=== PATIENT | female | born 1985 | race Two or more races ===

== ENCOUNTER 2021-04-05 16:01 | Emergency (ER) | payer MEDICAID ==
[~2021-04-05] VITALS: Ht 177.8 cm; Wt 150.0 kg
--- NOTE | 2021-04-05 17:13 | PHYS DOC ---
Past Medical History Past Surgical History: No Surgical History (MALENA GONSALES DO) General Adult EDM: Chief Complaint: ABDOMINAL PAIN HPI: HPI: Patient is a 35 year old female who present to ER for evaluation of umbilical abdominal pain off and on for 5 months. Patient says she has an umbilical hernia there, for the last few day it has been more painful. Patient denies any nausea vomiting. Patient has history of tubal ligation so she says she is not . Patient denies any vaginal bleeding or discharge, no frequent urination. Patient denies any chest pain or any trouble breathing, no COVID-19 exposure. (MALENA GONSALES DO) Review of Systems: Review of Systems: Constitutional: Denies fever or chills. [] Eyes: Denies change in visual acuity. [] HENT: Denies nasal congestion or sore throat. [] Respiratory: Denies cough or shortness of breath. [] Cardiovascular: Denies chest pain or edema. [] GI: Positive for abdominal pain, no nausea vomiting, no diarrhea. : Denies dysuria. [] Musculoskeletal: Denies back pain or joint pain. [] Integument: Denies rash. [] Neurologic: Denies headache, focal weakness or sensory changes. [] Endocrine: Denies polyuria or polydipsia. [] Lymphatic: Denies swollen glands. [] Psychiatric: Denies depression or anxiety. [] (MALENA GONSALES DO) Heart Score: C/O Chest Pain: N/A Risk Factors: Risk Factors: DM, Current or recent (<one month) smoker, HTN, HLP, family history of CAD, obesity. Risk Scores: Score 0 - 3: 2.5% MACE over next 6 weeks - Discharge Home Score 4 - 6: 20.3% MACE over next 6 weeks - Admit for Clinical Observation Score 7 - 10: 72.7% MACE over next 6 weeks - Early Invasive Strategies (MALENA GONSALES DO) Physical Exam: PE: Constitutional: Well developed, well nourished, no acute distress, non-toxic appearance. Obese HENT: Normocephalic, atraumatic, bilateral external ears normal, oropharynx moist, no oral exudates, nose normal. [] Eyes: PERRLA, EOMI, conjunctiva normal, no discharge. [] Neck: Normal range of motion, no tenderness, supple, no stridor. [] Cardiovascular:Heart rate regular rhythm, no murmur [] Lungs & Thorax: Bilateral breath sounds clear to auscultation [] Abdomen: Bowel sounds normal, soft, there is tenderness to palpation in the periumbilical area, there is a nonreducible umbilical hernia, no masses, no pulsatile masses. [] Skin: Warm, dry, no erythema, no rash. [] Back: No tenderness, no CVA tenderness. [] Extremities: No tenderness, no cyanosis, no clubbing, ROM intact, no edema. [] Neurologic: Alert and oriented X 3, normal motor function, normal sensory function, no focal deficits noted. [] Psychologic: Affect normal, judgement normal, mood normal. [] (MALENA GONSALES DO) Current Patient Data: Vital Signs: Vital Signs Date Time Temp Pulse Resp B/P (MAP) Pulse Ox O2 Delivery O2 Flow Rate FiO2 04/05/21 16:57 98.1 103 16 139/75 96 98.1 (MALENA GONSALES DO) EKG: EKG: [] (MALENA GONSALES DO) Radiology/Procedures: Radiology/Procedures: [] (MALENA GONSALES DO) Radiology/Procedures: IMAGING REPORT Signed PATIENT: RENU BULLARD ACCOUNT: [id number] : 1985 LOCATION: ER AGE: 35 SEX: F EXAM STATUS: REG ER ORD. PHYSICIAN: MALENA GONSALES DO REASON: periumbilical abdominal pain PROCEDURE: CT ABD PELV W/ IV CONTRST ONLY Exam: CT of abdomen and pelvis with contrast INDICATION: Periumbilical abdominal pain TECHNIQUE: Sequential axial images through the abdomen and pelvis obtained following the administration of 75 mL of Omni 300 IV contrast. Sagittal and coronal reformatted images were reconstructed from the axial data and reviewed. Exposure: One or more of the following in the visualized dose reduction techniques were utilized for this examination: 1. Automated exposure control 2. Adjustment of the MA and/or KV according to patient size 3. Use of iterative of reconstructive technique Comparisons: None FINDINGS: Heart size is normal. No pericardial effusion. Visualized lung bases are clear. No pleural effusion. Liver, spleen, pancreas, and adrenals are unremarkable. Gallbladder surgically absent. No perinephric inflammation or hydronephrosis. No renal or ureteral calculi are identified. Bladder is partially distended and not well evaluated. Uterus is not enlarged. No abnormal adnexal mass. Large and small bowel are unremarkable. Appendix is normal. No free intra- abdominal air or fluid. No obstruction. Abdominal aorta has normal course and caliber. Abdominal vasculature is patent. No enlarged intra-abdominal lymph nodes are identified. No suspicious osseous lesions or acute fractures. There is a fat-containing periumbilical hernia which measures 11 cm in diameter and approximately 2.8 cm opening IMPRESSION: Fat-containing periumbilical hernia. No herniated bowel. No evidence for obstruction. Electronically signed by: Chelle Garber MD (04/05/2021 8:37 PM) [facility] DICTATED and SIGNED BY: CHELLE GARBER MD DATE: 04/05/21 [id number] 0 (VALORIE REVELES DO) Course & Med Decision Making: Course & Med Decision Making Pertinent Labs and Imaging studies reviewed. (See chart for details) Patient is a 25-year-old female who present to ER for evaluation of periumbilical pain. Patient has a nonreducible umbilical hernia, tender to palpation, will obtain a CT scan abdomen pelvis to evaluate for strangulation or incarceration nature of the hernia. Patient's care has been endorsed to the [facility] physician at shift change Dr. Valorie Reveles. (GONSALESMALENA DO) Course & Med Decision Making Patient was evaluated by myself. Large pannus with periumbilical pain-able to press firmly on umbilical hernia (soft sac, normal appearing skin) and reduce without any severe distress. Pt educated on reduction. Sxs have been intermittent x 5 months. Pt calm at rest/sitting upright. Will discharge home with strict ED return precautions were given for severe or worsening pain, nausea, vomiting, abnormal bowel movements or fever. Encouraged urgent outpatient follow-up with PMD and surgery for definitive management. Life- threatening processes were considered but are low suspicion at this time, given history, physical exam and ED workup. Pt was educated on all prescription medications and adverse effects. All patient's questions were answered and pt was stable at time of discharge. Life/limb-threatening differential includes but is not limited to, aortic dissection, aortic aneurysm, acute coronary syndrome, surgical abdomen (appendicitis, cholecystitis, ischemic bowel, strangulated hernia, etc), bowel obstruction or volvulus, bladder outlet obstruction, gastrointestinal bleeding, inflammatory bowel disease, peptic ulcer disease, ACS/CAD, sepsis, diverticular disease, ureterolithiasis, nephrolithiasis, ovarian or testicular torsion, ectopic , vaginal hemorrhage, or genitourinary infection. I have spoken with the patient and/or caregivers. I explained the patient's condition, diagnoses and treatment plan based on the information available to me at this time. I have answered the patient and/or caregiver's questions and addressed any concerns. The patient and/or caregivers have a good understanding of patient's diagnosis, condition and treatment plan as can be expected at this point. Vital signs have been stable. Patient's condition is stable and appropriate for discharge from the emergency department. Patient will pursue further outpatient evaluation with primary care physician or other designated or consulting physician as outlined in the discharge instructions. The patient and/or caregivers are agreeable to this plan of care and follow-up instructions have been explained in detail. The patient and/or caregivers have received these instructions in written form and have expressed an understanding of the discharge instructions. The patient and/or caregivers are aware that any significant change of condition or worsening of symptoms should prompt immediate return to this or the closest emergency department or call to 911. (VALORIE REVELES DO) Myke Disclaimer: Myke Disclaimer: This electronic medical record was generated, in whole or in part, using a voice recognition dictation system. (MALENA GONSALES DO) Departure Departure Impression: Primary Impression: Umbilical hernia Additional Impression: Chronic abdominal pain Disposition: HOME / SELF CARE / HOMELESS Condition: STABLE Referrals: UNKNOWN PCP NAME (PCP) Follow-up with your primary care physician in 24 to 48 hours OR FOLLOW UP WITH FAMILY MEDICINE: [email or web address], [address] [place] [address] Patient Instructions: Hernia Additional Instructions: SEGUIMIENTO CON CIRUGA: PARA EL MANEJO DEFINITIVO de friend hernia umbilical que contiene grasa in 1-[address] [facility] [address]: [id number], [address] [place] [address] Telfono: MALENA GONSALES DO Apr 05, 2021 17:13 VALORIE REVELES DO Apr 05, 2021 20:58
[2021-04-05 17:57] LABS: BASO # 0.1 x10^3/uL (0.0-0.2); BASO % 1 % (0-3); EOS # 0.1 x10^3/uL (0.0-0.7); EOS % 1 % (0-3); HEMATOCRIT 35.5 % (36.0-47.0); HEMOGLOBIN 11.4 g/dL (12.0-15.5); LYMPH # 2.3 x10^3/uL (1.0-4.8); LYMPH % 20 % (24-48); MEAN CORPUSCULAR HEMOGLOBIN 25 pg (25-35); MEAN CORPUSCULAR HGB CONC 32 g/dL (31-37); MEAN CORPUSCULAR VOLUME 78 fL (79-100); MONO # 0.5 x10^3/uL (0.0-1.1); MONO % 4 % (0-9); NEUT # 8.6 x10^3/uL (1.8-7.7); NEUT % 74 % (31-73); PLATELET COUNT 365 x10^3/uL (140-400); RED BLOOD COUNT 4.55 x10^6/uL (3.50-5.40); RED CELL DISTRIBUTION WIDTH 16.7 % (11.5-14.5); WHITE BLOOD COUNT 11.6 x10^3/uL (4.0-11.0)
[2021-04-05 18:13] LABS: CALCIUM 9.2 mg/dL (8.5-10.1); CREATININE 0.9 mg/dL (0.6-1.0); GFR 70.5; POTASSIUM 3.7 mmol/L (3.5-5.1)
[2021-04-05] MEDS ORDERED: IOHEXOL 300 MG/ML 100ML VIAL. IV ONE (18:15)
[2021-04-05] MEDS ORDERED: CONTRAST GIVEN. MC PRN (18:15)
[2021-04-05 18:18] LABS: ALBUMIN 3.5 g/dL (3.4-5.0); ALBUMIN/GLOBULIN RATIO 0.7 (1.0-1.7); TOTAL BILIRUBIN 0.4 mg/dL (0.2-1.0); TOTAL PROTEIN 8.3 g/dL (6.4-8.2)
[2021-04-05 18:39] LABS: BILIRUBIN,URINE NEGATIVE (NEG); CLARITY,URINE CLEAR; COLOR,URINE YELLOW; NITRITE,URINE NEGATIVE (NEG); PH,URINE 5.5 (<5.0-8.0); PROTEIN,URINE NEGATIVE (NEG-TRACE); UROBILINOGEN,URINE 0.2 mg/dL (0.2 mg/dL)
[2021-04-05 18:54] LABS: BACTERIA,URINE FEW /HPF (0-FEW)
[2021-04-05 18:55] LABS: RBC,URINE 0 /HPF (0-2)
[2021-04-05] MEDS ORDERED: IV NORMAL SALINE 1000ML BAG 1,000 ML IV ONE (20:00)
--- NOTE | 2021-04-05 20:39 | RAD ---
Exam: CT of abdomen and pelvis with contrast INDICATION: Periumbilical abdominal pain TECHNIQUE: Sequential axial images through the abdomen and pelvis obtained following the administrati on of 75 mL of Omni 300 IV contrast. Sagittal and coronal reformatted images were reconstructed from the axial data and reviewed. Exposure: One or more of the following in the visualized dose reduction techniques were utilized for this examination: 1. Automated exposure control 2. Adjustment of the MA and/or KV according to patient size 3. Use of iterative of reconstructive technique Comparisons: None FINDINGS: Heart size is normal. No pericardial effusion. Visualized lung bases are clear. No pleural effusion. Liver, spleen, pancreas, and adrenals are unremarkable. Gallbladder surgically absent. No perinephric inflammation or hydronephrosis. No renal or ureteral calculi are identified. Bladder is partially distended and not well evaluated. Uterus is not enlarged. No abnormal adnexal ma ss. Large and small bowel are unremarkable. Appendix is normal. No free intra-abdominal air or fluid. No obstruction. Abdominal aorta has normal course and caliber. Abdominal vasculature is patent. No enlarged intra-abdominal lymph nodes are identified. No suspicious osseous lesions or acute fractures. There is a fat-containing periumbilical hernia whic h measures 11 cm in diameter and approximately 2.8 cm opening IMPRESSION: Fat-containing periumbilical hernia. No herniated bowel. No evidence for obstruction. Electronically signed by: Chelle King MD (04/05/2021 8:37 PM) [facility]
[2021-04-05 22:32] VITALS: BP 150/79
== END 2021-04-05 23:01 | disposition home or self-care (01) ==
LOC: ER 16:01
DX: K42.9 Umbilical hernia without obstruction or gangrene (principal); G89.29 Other chronic pain; Z98.51 Tubal ligation status
CPT/HCPCS: 36415; 74177; 80053; 81001; 83690; 85025; 87086; 96360; 99285; J7030; Q9967

== ENCOUNTER 2021-07-27 08:59 | Emergency (ER) | payer MEDICAID ==
[~2021-07-27] VITALS: Ht 175.3 cm; Wt 155.6 kg
--- NOTE | 2021-07-27 09:38 | PHYS DOC ---
Past Medical History Additional Past Medical Histor: hernia Past Surgical History: Cholecystectomy General Adult EDM: Chief Complaint: VAGINAL BLEEDING HPI: HPI: Patient is a 35-year-old female presenting for vaginal bleeding. Patient is predominantly [place]-speaking and so history was in part obtained by myself and confirmed with an health care recruiter services. Vaginal bleeding today is AN acute issue. States she has no diagnosed medical issues and takes no medications on a daily basis. States she is currently on her menstrual cycle with first day of last menstrual period 2 days ago. Presents today as she reports her bleeding and pubic cramping are worse than usual. States she changed her pad 6 times overnight, initially had bright red blood but this has turned more dark in nature with ongoing cramping, no clots or other signs of anemia such as lightheadedness, syncope, palpitations, chest pain, shortness of breath etc. reported. She has never experienced bleeding like this before prompting her to come in for evaluation. Patient has 2 prior pregnancies, has x2 healthy children born via section most recent of which was 15 years ago. No other intra-abdominal and/or SENIOR MORTGAGE LOAN PROCESSOR abnormalities reported. Admits she is sexually active with her . No other known prior abnormal Pap smears etc. Review of Systems: Review of Systems: Fourteen body systems of review of systems have been reviewed. See HPI for pertinent positives and negative responses, other peck all other systems are negative, non-pertinent or non-contributory Heart Score: C/O Chest Pain: No Risk Factors: Risk Factors: DM, Current or recent (<one month) smoker, HTN, HLP, family history of CAD, obesity. Risk Scores: Score 0 - 3: 2.5% MACE over next 6 weeks - Discharge Home Score 4 - 6: 20.3% MACE over next 6 weeks - Admit for Clinical Observation Score 7 - 10: 72.7% MACE over next 6 weeks - Early Invasive Strategies Allergies: Allergies: Allergies Coded Allergies Type Severity Reaction Last Updated Verified No Known Drug Allergies 07/27/21 No Physical Exam: PE: Constitutional: Well developed, well nourished and obese, no acute distress, non-toxic appearance. HENT: Normocephalic, atraumatic, bilateral external ears normal, oropharynx moist, no oral exudates, nose normal. Eyes: PERRLA, EOMI, conjunctiva normal, no discharge. Neck: Normal range of motion, no tenderness, supple, no stridor. Acanthosis nigricans noted on neck fold Cardiovascular: Heart rate regular, sinus rhythm, no murmurs rubs or gallops Lungs & Thorax: Bilateral breath sounds clear to auscultation Abdomen: Bowel sounds normal, soft and protuberant, no tenderness, no masses, no pulsatile masses. Nonsurgical abdomen, no peritoneal signs : External genitalia unremarkable, vaginal vault unremarkable, cervix nonfriable with negative chandelier sign with small amount of pooling of bright red blood with no obvious bleeding source, no obvious/active bleeding identified Skin: Warm, dry, no erythema, no rash. Back: No tenderness, no CVA tenderness. Extremities: No tenderness, no cyanosis, no clubbing, ROM intact, no edema. Neurologic: Alert and oriented X 3, grossly normal motor & sensory function, no focal deficits noted. Psychologic: Affect normal, judgement normal, mood normal. Current Patient Data: Labs: Laboratory Tests Test 07/27/21 09:11 07/27/21 09:50 07/27/21 10:39 Urine Collection Type Unknown Urine Color Red Urine Clarity Bloody Urine pH Urine Specific [place] Urine Protein mg/dL Urine Glucose (UA) mg/dL Urine Ketones (Stick) mg/dL Urine Blood Urine Nitrite Urine Bilirubin Urine Urobilinogen Dipstick mg/dL Urine Leukocyte Esterase Urine RBC Tntc /HPF Urine WBC 0 /HPF Urine Bacteria 0 /HPF White Blood Count 5.5 x10^3/uL Red Blood Count 4.89 x10^6/uL Hemoglobin 12.1 g/dL Hematocrit 37.8 % Mean Corpuscular Volume 77 fL Mean Corpuscular Hemoglobin 25 pg Mean Corpuscular Hemoglobin Concent 32 g/dL Red Cell Distribution Width 17.2 % Platelet Count 272 x10^3/uL Neutrophils (%) (Auto) 63 % Lymphocytes (%) (Auto) 28 % Monocytes (%) (Auto) 8 % Eosinophils (%) (Auto) 0 % Basophils (%) (Auto) 1 % Neutrophils # (Auto) 3.5 x10^3/uL Lymphocytes # (Auto) 1.5 x10^3/uL Monocytes # (Auto) 0.4 x10^3/uL Eosinophils # (Auto) 0.0 x10^3/uL Basophils # (Auto) 0.0 x10^3/uL Sodium Level 143 mmol/L Potassium Level 4.0 mmol/L Chloride Level 107 mmol/L Carbon Dioxide Level 26 mmol/L Anion Gap 10 Blood Urea Nitrogen 9 mg/dL Creatinine 0.7 mg/dL Estimated GFR (Cockcroft-Gault) 94.2 Glucose Level 100 mg/dL Calcium Level 8.2 mg/dL Thyroid Stimulating Hormone (TSH) 1.017 uIU/mL Prolactin 6.3 ng/mL Urine Test Negative Vital Signs: Vital Signs Date Time Temp Pulse Resp B/P (MAP) Pulse Ox O2 Delivery O2 Flow Rate FiO2 07/27/21 09:15 98.6 77 16 139/80 (99) 99 Room Air 98.6 EKG: EKG: [] Radiology/Procedures: Radiology/Procedures: [] Course & Med Decision Making: Course & Med Decision Making ABCs unremarkable HPI physical exam and comprehensive ER work-up nonconcerning for any emergent or surgical issues Patient presenting for vaginal bleeding and pubic cramping, she is currently on her typical period but there is increased bleeding and pain per patient There is no ongoing hemorrhage or concern for further diagnostic work-up and/or need for hospitalization at present. Supportive care and close outpatient follow-up with CONTENT MANAGEMENT SPECIALIST for repeat evaluation and nonemergent outpatient ultrasound was advised I discussed patient's issue could be due to a variety of things, I reviewed [place] causes for vaginal bleeding in a non individual, also disclosed that her weight and potential underlying hormonal conditions due to sheer size could be a factor Dragon Disclaimer: Myke Disclaimer: This electronic medical record was generated, in whole or in part, using a voice recognition dictation system. Departure Departure Impression: Primary Impression: Vaginal bleeding Disposition: HOME / SELF CARE / HOMELESS Condition: STABLE Referrals: NO PCP (PCP) GORDY IBRAHIM DO Jul 27, 2021 09:38
[2021-07-27 10:29] LABS: CALCIUM 8.2 mg/dL (8.5-10.1)
[2021-07-27 10:30] LABS: CREATININE 0.7 mg/dL (0.6-1.0); GFR 94.2
[2021-07-27 10:39] LABS: BASO % 1 % (0-3); EOS % 0 % (0-3); HEMATOCRIT 37.8 % (36.0-47.0); HEMOGLOBIN 12.1 g/dL (12.0-15.5); LYMPH % 28 % (24-48); MEAN CORPUSCULAR HEMOGLOBIN 25 pg (25-35); MEAN CORPUSCULAR HGB CONC 32 g/dL (31-37); MEAN CORPUSCULAR VOLUME 77 fL (79-100); MONO % 8 % (0-9); NEUT # 3.5 x10^3/uL (1.8-7.7); NEUT % 63 % (31-73); PLATELET COUNT 272 x10^3/uL (140-400); RED BLOOD COUNT 4.89 x10^6/uL (3.50-5.40); RED CELL DISTRIBUTION WIDTH 17.2 % (11.5-14.5); WHITE BLOOD COUNT 5.5 x10^3/uL (4.0-11.0)
[2021-07-27 10:40] LABS: LYMPH # 1.5 x10^3/uL (1.0-4.8); MONO # 0.4 x10^3/uL (0.0-1.1)
[2021-07-27 13:07] LABS: U PREG PATIENT NEGATIVE (NEG)
[2021-07-27 13:33] LABS: CLARITY,URINE BLOODY; COLOR,URINE RED
[2021-07-27 13:34] LABS: BACTERIA,URINE 0 /HPF (0-FEW); RBC,URINE TNTC /HPF (0-2); WBC,URINE 0 /HPF (0-4)
[2021-07-27 13:55] VITALS: BP 152/75
[2021-07-28 16:11] LABS: GC PROBE Negative (Negative)
== END 2021-07-27 14:14 | disposition home or self-care (01) ==
LOC: ER 08:59
DX: N93.9 Abnormal uterine and vaginal bleeding, unspecified (principal); Z90.49 Acquired absence of other specified parts of digestive tract; Z98.890 Other specified postprocedural states
CPT/HCPCS: 80048; 81001; 81025; 84146; 84443; 85025; 87491; 87591; 99285; Q0111

== ENCOUNTER 2021-08-29 08:10 | Emergency (ER) | payer MEDICAID ==
[~2021-08-29] VITALS: Ht 170.2 cm; Wt 116.0 kg
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
[2021-08-29] MEDS: CYCLOBENZAPRINE 10 MG TABLET. PO ONE (08:30)
[2021-08-29] MEDS: KETOROLAC 60 MG/2 ML VIAL. IM ONE (08:30)
[2021-08-29 09:02] LABS: U PREG PATIENT NEGATIVE (NEG)
--- NOTE | 2021-08-29 09:03 | RAD ---
EXAM: XR CERVICAL SPINE 2-3V 08/29/2021 8:44 AM CLINICAL INDICATION: Pain, no injury or trauma. Unable to move head and neck. COMPARISON: None TECHNIQUE: AP and lateral views of the cervical spine FINDINGS: C7 is obscured on lateral view. There is no fracture. No listhesis. Disc spaces are mainta ined. Minimal osteophyte formation C4-C5 and C5-C6. Facet joints are normal. There may be mild prever tebral soft tissue thickening. Lung apices are clear. IMPRESSION: 1. No acute osseous abnormality. 2. Minimal degenerative changes at C5. 3. Possible mild prevertebral soft tissue thickening. Electronically signed by: Gabbi Valiente MD (08/29/2021 9:01 AM) [id number]
[2021-08-29 09:14] LABS: BILIRUBIN,URINE NEGATIVE (NEG); CLARITY,URINE CLEAR; COLOR,URINE YELLOW; NITRITE,URINE NEGATIVE (NEG); PH,URINE 7.5 (<5.0-8.0); PROTEIN,URINE NEGATIVE (NEG-TRACE)
[2021-08-29 09:32] LABS: BACTERIA,URINE FEW /HPF (0-FEW); RBC,URINE 0 /HPF (0-2); WBC,URINE 0 /HPF (0-4)
[2021-08-29] MEDS ORDERED: IBUP-1060 PO (09:45)
[2021-08-29] MEDS ORDERED: CYCL10TA19 PO (09:45)
[2021-08-29 10:11] VITALS: BP 132/84
== END 2021-08-29 10:11 | disposition home or self-care (01) ==
LOC: ER 08:10
DX: M54.2 Cervicalgia (principal); M54.6 Pain in thoracic spine; Z90.49 Acquired absence of other specified parts of digestive tract; Z98.890 Other specified postprocedural states
CPT/HCPCS: 72040; 81001; 81025; 96372; 99284; J1885